=== PATIENT | male | born 1995 | race Caucasian/White ===

== ENCOUNTER 2025-02-01 18:37 | Emergency (ER) | payer OTHER, SELFPAY ==
[2025-02-01 18:39] VITALS: BP 130/89; PULSE 77; RESP 16; TEMP 36.4; O2SAT 97; BMI 22.0
--- NOTE | 2025-02-01 18:57 | ED_ITS ---
HPI - General Adult General Chief complaint: Nausea/Vomiting/Diarrhea Stated complaint: vomiting blood Time Seen by Provider: 02/01/25 20:05 History of Present Illness ED Provider: Emmett Mckeon MD HPI narrative: This is a healthy 21-year-old man from [facility] originally with no significant medical or surgical history. He has started having multiple episodes of retching and vomiting today. By about the 8th or 9th episode he started seeing small streaks of bleeding. He has had 1 or 2 episodes of this. Reports mild epigastric pain and nausea. No dark or bloody stool no history of similar previous. Does not take any daily medications female partner at the bedside acknowledges eating pretty much the same things as he has with no symptoms. No fever or chills. They did have a flight and has been very jet lag from your up over the past few days. Related Data Previous Rx's ?Medication ?Instructions ?Recorded omeprazole 20 mg capsule,delayed 20 mg PO DAILY 30 day s #30 caps 02/01/25 release ondansetron 4 mg disintegrating 4 mg PO Q8H PRN nausea and 02/01/25 tablet vomiting #7 tabs sucralfate 1 gram tablet (Carafate) 1 g PO BID 4 days #8 tabs 02/01/25 Allergies Allergy/AdvReac Type Severity Reaction Status Date / Time No Known Allergies Allergy Verified 02/01/25 18:43 PMFSH Social History Social History Smoked in Last 30 Days: No Use of substances other than those prescribed or required for medical reasons: No Advance Directives: No Advance Directives Information Provided: No Do you have a plan to hurt others: No Plan Physical Exam ED Vital Signs: Vital Signs - 24 hr 02/01/25 18:39 02/01/25 21:25 02/01/25 22:32 Temperature 97.5 F 97.6 F 97.6 F Pulse Rate 77 64 67 Respiratory Rate 16 18 18 Blood Pressure 130/89 123/71 118/60 Pulse Oximetry 97 96 98 Oxygen Delivery Method Room Air Room Air Room Air BMI result Body Mass Index 22.0 Const Other: EXAM: Gen: Alert, awake, well appearing, well hydrated. Head: Atraumatic Eyes: Anicteric, Normal conjunctiva. ENT: Moist mucosa, no pallor. ? Neck: Supple. Skin: ?No observable rash or bruising on exposed or examined skin Respiratory: Breathing comfortably, No distress.Clear to auscultation bilaterally, symmetric chest expansion, No wheeze, rales, ronchi. Cardiovascular: Regular rate and rhythm. No murmurs or rub. Well perfused periphery, warm extremities. No edema. ? Abdominal: No focal tenderness. Soft, no objective distension. No palpable masses or obvious organomegaly. ?No guarding, no rebound tenderness or other peritoneal findings. : No flank tenderness. Neuro: Alert. Gross movement of all extremities intact. ? Psych: Calm. Cooperative. MSK: No grossly visible deformity. Vital signs: See flowsheet Course Course Course Narrative: RME: 29-year-old male presents to ED for vomiting blood 3 hours ago with upper epigastric abdominal pain. Patient states vomit is fruit punch red in color. Patient denies any recent trauma to the abdomen, large amount of Motrin use, or alcohol issues. Patient denies any ulcers. Medications Administered Discontinued Medications Generic Name Dose Route Start Last Admin Trade Name Freq PRN Reason Stop Dose Admin Famotidine 20 mg 02/01/25 20:42 02/01/25 21:02 Famotidine 20 Mg Tablet PO 02/01/25 20:43 20 mg ONCE ONE Administration Famotidine 20 mg 02/01/25 21:22 02/01/25 21:34 Famotidine/Pf 20 Mg/2 Ml Vial IVPUSH 02/01/25 21:23 20 mg ONCE ONE Administration Ondansetron HCl 4 mg 02/01/25 20:42 02/01/25 21:02 Ondansetron Odt 4 Mg Tab.Rapdis TRANSLINGU 02/01/25 20:43 4 mg ONCE ONE Administration Ondansetron HCl 4 mg 02/01/25 21:22 02/01/25 21:34 Ondansetron Hcl 4 Mg/2 Ml Vial IVPUSH 02/01/25 21:23 4 mg ONCE ONE Administration Sucralfate 1 gm 02/01/25 20:42 02/01/25 21:02 Sucralfate Oral Suspension 1 Gm/10 Ml Oral.Susp PO 02/01/25 20:43 1 gm ONCE ONE Administration Medical Decision Making Medical Decision Making MDM Narrative: Medical Decision Making: [age] male healthy no surgical or medical history no daily drug use or other toxic habits no GI bleeding history. It sounds like blood-streaked vomit only after multiple recurrent episodes of retching and vomiting mostly nonbloody is nonbilious material. Strongly suggestive of Gaby-Bello tear. He has not had any bloody vomitus in the ED nor any melena described. His abdomen has minimal tenderness in the epigastrium and he looks well. Lab work is reassuring with no anemia. Symptoms well controlled after topicals and antiemetics. Counseled extensively on return precautions. Preliminary Favored Differential Diagnosis: Upper GI bleed, Gaby-Bello tear favored over PUD, gastritis esophagitis. No stigmata of end-stage liver disease doubt variceal or other serious upper GI hemorrhage. Exam not suggestive of perforation. Return precautions PPI provided among additional considered etiologies Testing Interpreted Independently: Not Applicable Radiology or Lab testing Results Reviewed: Lab work reassuring without significant anemia or other actionable findings. Consults: Not Applicable Independent Historians/External Chart Reviews: Not Applicable Social Determinants of Health Impacting MDM/Planning: Not Applicable Lab Data 02/01/25 19:08 02/01/25 19:08 Labs: Lab Results 02/01/25 Range/Units 19:08 WBC 13.4 H (4.8-10.8) X10*3/uL RBC 5.36 (4.60-5.80) X10*6/uL Hgb 16.4 (14.0-18.0) g/dl Hct 45.1 (42.0-52.0) % MCV 84.1 (80.0-98.0) fL MCH 30.6 (27.0-33.0) pg MCHC 36.4 H (31.0-36.0) g/dl RDW 11.9 (11.0-16.0) % Plt Count 378 (160-400) X10*3/uL MPV 8.6 L (9.4-12.4) fL Immature Gran % (Auto) 0.2 (0.0-0.4) % Neut % (Auto) 87.2 H (45-73) % Lymph % (Auto) 6.9 L (20-40) % [place] % (Auto) 5.4 (2-11) % Eos % (Auto) 0.1 (0-4) % Baso % (Auto) 0.2 (0-2) % Lymph # (Auto) 0.9 L (1.2-4.9) X10*3/uL [place] # (Auto) 0.7 (0.1-1.2) X10*3/uL Eos # (Auto) 0.0 (0.0-0.4) X10*3/uL Baso # (Auto) 0.0 (0.0-0.2) X10*3/uL Abs Immat Gran (auto) 0.03 (0.00-0.03) X10*3/uL Absolute Neuts (auto) 11.6 H (2.0-8.3) x10*3/uL Absolute Nucleated RBC 0.000 (0.0-0.012) X10*3/uL Nucleated RBC % (auto) 0.0 (0.0-0.2) /100WBC PT 11.6 (10.9-12.4) SEC INR 1.0 (0.9-1.1) APTT 28.5 (26.0-36.8) SEC Sodium 137 (135-145) mmol/L Potassium 4.0 (3.3-5.1) mmol/L Chloride 103 (96-108) mmol/L Carbon Dioxide 23 (22-29) mmol/L Anion Gap 15 (12-20) BUN 17 H (9-16) mg/dL Creatinine 0.99 (0.5-1.4) mg/dL Estim Creat Clear Calc 106.0 Estimated GFR > 60 Random Glucose 120 H (60-115) mg/dL Calcium 9.5 (8.4-10.2) mg/dL Total Bilirubin 0.6 (0.0-1.0) mg/dL AST 32 (5-37) U/L ALT 29 (0-40) U/L Alkaline Phosphatase 65 (39-117) U/L Total Protein 7.8 (6.5-8.0) g/dL Albumin 5.1 H (3.5-5.0) g/dL Lipase 34 (8-78) U/L Urine Color Dark Yellow Urine Appearance Clear Urine pH 5.0 (5.0-9.0) Ur Specific Roy >= 1.030 H (1.005-1.025) Urine Protein 30 (1+) H (Neg-Trace) mg/dL Urine Glucose (UA) Negative (Negative) mg/dL Urine Ketones Trace (Negative) mg/dL Urine Blood Negative (Negative) Urine Nitrite Negative (Negative) Ur Leukocyte Esterase Negative (Negative) Urine RBC 0-2 (0-2) /HPF Urine WBC 0-5 (0-5) /HPF Ur Squamous Epith Cells 0-2 (0-2) /HPF Urine Bacteria None Seen (None Seen) Hyaline Casts 3-5 (0-2) /LPF Discharge Plan Discharge Clinical Impression: Vomiting, Gaby-Bello tear Patient Disposition: Home, Self-Care Instructions: Acute Nausea and Vomiting (DC) Additional Instructions: _ DISCHARGE DIAGNOSES: Vomiting, 1 or 2 episodes of small amount of blood in the vomit This is of unclear cause at this time. You may have gastritis or inflammation of your stomach or food-borne illness, or stomach or duodenal ulcer. None of this can be evaluated or proven in the emergency department. The small amount of bleeding we feel could be secondary to what is called a Gaby-Bello tear see the attached instructions with an explanation. Generally this is typically benign but if you develop severe or worsening bleeding with vomiting or dark stools return to the emergency department HISTORY OF PRESENTATION: ?Vomiting small amount of blood. EMERGENCY DEPARTMENT COURSE,TESTS, TREATMENTS: While in the ED today you were evaluated with blood work blood counts, liver function testing, electrolytes kidney function were normal and reassuring. You were given medications: Carafate topical agent to coat your stomach and esophagus, famotidine an antacid medicine and ondansetron nausea medicine. DISCHARGE MEDICATIONS: ?We are discharging you with Carafate to be used for few days as well as as needed ondansetron nausea medicine. We feel you should take at least 1 week of omeprazole which we have prescribed for you an antacid medicine FOLLOW-UP: ?Call your primary or general physician soon as possible to discuss your symptoms, your ED visit and to discuss follow up plans Follow up with your primary physician when you return back to [place] INSTRUCTIONS ?& RETURN PRECAUTIONS: If any symptoms change first call your primary physician, if it is after-hours your primary doctors office should have a provider donkey doctor you can speak with. If the symptoms are severe or very concerning to you then call 911 or return to the ED. Return to the ER if you have heavy repeated episodes of bright red blood in the vomit or in the stool or dark stool or severe abdominal pain Emmett Mckeon MD Emergency Physician [facility] Prescriptions: New ondansetron 4 mg tablet,disintegrating 4 mg PO Q8H PRN (Reason: nausea and vomiting) Qty: 7 0RF sucralfate [Carafate] 1 gram tablet 1 g PO BID 4 Days Qty: 8 0RF omeprazole 20 mg capsule,delayed release(DR/EC) 20 mg PO DAILY 30 Days Qty: 30 0RF Interventions: ED Discharge Assessment Last Done: 02/01/25 22:32 Discharge Date/Time: 02/01/25 22:36 Print Language: Citizen Of [place]
[2025-02-01 19:12] LABS: MANUAL DIFF FLAG NO
[2025-02-01 19:14] LABS: Hematocrit 45.1 % (42.0-52.0); Hemoglobin 16.4 g/dl (14.0-18.0); Imm Gran Abs Auto 0.03 X10*3/uL (0.00-0.03); Imm Gran Pct Auto 0.2 % (0.0-0.4); Lymphocytes Absolute Auto 0.9 X10*3/uL (1.2-4.9); Mean Corpuscular HGB Conc 36.4 g/dl (31.0-36.0); Mean Corpuscular Hemoglobin 30.6 pg (27.0-33.0); Mean Corpuscular Volume 84.1 fL (80.0-98.0); NRBC Abs Auto 0.000 X10*3/uL (0.0-0.012); NRBC Pct Auto 0.0 /100WBC (0.0-0.2); Platelet Count 378 X10*3/uL (160-400); Red Blood Count 5.36 X10*6/uL (4.60-5.80); White Blood Count 13.4 X10*3/uL (4.8-10.8)
[2025-02-01 19:15] LABS: Appearance Urine Clear; Glucose Urine UA Negative (Negative); PH 5.0 (5.0-9.0); Specific Gravity - Urine >= 1.030 (1.005-1.025); UMIC TRIGGER UACC YES
[2025-02-01 19:19] LABS: INTERNATIONAL NORM RATIO 1.0 (0.9-1.1); Prothrombin Time 11.6 SEC (10.9-12.4)
[2025-02-01 19:22] LABS: Partial Thromboplastin Time 28.5 SEC (26.0-36.8)
[2025-02-01 19:28] LABS: Alanine Aminotransferase 29 U/L (0-40); Albumin Level 5.1 g/dL (3.5-5.0); Alkaline Phosphatase 65 U/L (39-117); Anion Gap 15 (12-20); Aspartate Amino Transferase 32 U/L (5-37); Blood Urea Nitrogen 17 mg/dL (9-16); Calcium 9.5 mg/dL (8.4-10.2); Carbon Dioxide 23 mmol/L (22-29); Chloride 103 mmol/L (96-108); Creatinine Clr Calc Pharmacy 106.0; Estimated Glomerular Filt Rate > 60; Lipase 34 U/L (8-78); Potassium 4.0 mmol/L (3.3-5.1); Sodium 137 mmol/L (135-145); Total Protein 7.8 g/dL (6.5-8.0)
[2025-02-01] MEDS: Sucralfate Oral Suspension 1 GM/10 ML ORAL.SUSP PO (21:02)
[2025-02-01 21:25] VITALS: BP 123/71; PULSE 64; RESP 18; TEMP 36.4; O2SAT 96
[2025-02-01 22:32] VITALS: BP 118/60; PULSE 67; RESP 18; TEMP 36.4; O2SAT 98
== END 2025-02-01 22:36 | disposition home or self-care (01) ==
PROVIDERS: Physician Assistant; Emergency Provider Emergency Medicine
DX: K22.6 Gastro-esophageal laceration-hemorrhage syndrome (principal); R11.2 Nausea with vomiting, unspecified; R10.13 Epigastric pain; Z79.899 Other long term (current) drug therapy
CPT/HCPCS: 36415; 80053; 81001; 83690; 85025; 85610; 85730; 96374; 96375; 99284; J1308; J2405